=== PATIENT | male | born 1970 | race Caucasian/White ===

== ENCOUNTER → 2022-07-26 | Outpatient (REF) | LOC: M PLAIMG 13:09 | PROVIDERS: ATTEND Internal Medicine | DX: Z11.52 Encounter for screening for COVID-19 (principal) ==

== ENCOUNTER → 2023-09-05 | Outpatient (REF) | LOC: M PLAIMG 14:13 | PROVIDERS: ATTEND Internal Medicine | DX: R52 Pain, unspecified (principal) ==